=== PATIENT | male | born 1955 | race Caucasian/White ===

== ENCOUNTER 2017-09-17 09:59 | Emergency (ER) | payer MEDICAID ==
[~2017-09-17] VITALS: Ht 175.3 cm; Wt 87.1 kg
[2017-09-17 10:12] VITALS: BP_SYST 156
[2017-09-17] MEDS ORDERED: ALBUTEROL SULFATE 0.083% 2.5 MG/3 ML VIAL.NEB IH ONE (10:15)
[2017-09-17] MEDS ORDERED: methylPREDNISolone SOD SUCC/PF 62.5 MG/ML VIAL IVP ONE (10:15)
[2017-09-17] MEDS ORDERED: IPRATROPIUM BROM 0.5 MG/2.5 ML VIAL.NEB (ATROVENT) IH ONE (10:15)
[2017-09-17] MEDS ORDERED: MAGNESIUM SULFATE 50 ML IV ONE (10:15)
[2017-09-17 12:09] VITALS: BP_SYST 146
== END 2017-09-17 12:05 | disposition home or self-care (01) ==
LOC: SED 09:59
DX: Z76.0 Encounter for issue of repeat prescription (principal); J45.909 Unspecified asthma, uncomplicated
CPT/HCPCS: 94640; 96365; 96366; 96375; 99285; J2930; J3475